=== PATIENT | female | born 1990 | race African-American/Black ===

== ENCOUNTER 2016-07-21 17:57 | Emergency (ER) | payer MEDICAID, OTHER ==
[~2016-07-21] VITALS: Ht 165.1 cm; Wt 114.0 kg
[~2016-07-21 17:57] MED LIST: MOME17SP; PREN1TAB60 PO
[2016-07-21 18:00] VITALS: BP 116/80
[2016-07-21] MEDS ORDERED: ONDANSETRON ODT 4 MG PO ONE (18:30)
[2016-07-21] MEDS ORDERED: IBUPROFEN 200 MG TABLET PO ONE (18:30)
[2016-07-21] MEDS ORDERED: HYDROcodone/APAP 5/325 TABLET PO ONE (18:30)
[2016-07-21] MEDS ORDERED: HYDROcodone/APAP 5/325 TABLET ONE (18:54)
[2016-07-21] MEDS ORDERED: ONDANSETRON ODT 4 MG ONE (18:55)
[2016-07-21] MEDS ORDERED: IBUPROFEN 200 MG TABLET ONE (18:55)
== END 2016-07-21 19:37 | disposition home or self-care (01) ==
LOC: ED 18:27
DX: S80.01XA Contusion of right knee, initial encounter (principal); Z90.49 Acquired absence of other specified parts of digestive tract; Z88.0 Allergy status to penicillin; W19.XXXA Unspecified fall, initial encounter; Y93.89 Activity, other specified; Y92.89 Other specified places as the place of occurrence of the external cause; Y99.8 Other external cause status
CPT/HCPCS: 29505; 73564; 99284; Q0162

== ENCOUNTER 2016-07-27 12:57 | Emergency (ER) | payer MEDICAID, OTHER ==
[~2016-07-27] VITALS: Ht 165.1 cm; Wt 112.1 kg
[2016-07-27] MEDS ORDERED: ONDANSETRON ODT 4 MG ONE ×2 (13:33→14:12)
[2016-07-27] MEDS ORDERED: ONDANSETRON ODT 4 MG PO ONE ×2 (14:00→14:30)
[2016-07-27] MEDS ORDERED: LORazepam 1MG TABLET ONE (14:20)
[2016-07-27] MEDS ORDERED: LORazepam 1MG TABLET PO ONE (14:30)
[2016-07-27 15:39] VITALS: BP 125/85
== END 2016-07-27 15:41 ==
LOC: ED 15:35
DX: T78.40XA Allergy, unspecified, initial encounter (principal); Z90.49 Acquired absence of other specified parts of digestive tract
CPT/HCPCS: 99284; Q0162

== ENCOUNTER 2018-03-01 17:39 | Emergency (ER) | payer MEDICAID ==
[~2018-03-01] VITALS: Ht 162.6 cm; Wt 115.0 kg
[2018-03-01] MEDS ORDERED: DIPHENHYDRAMINE 25 MG CAPSULE ONE (17:52)
[2018-03-01] MEDS ORDERED: EPINEPHRINE 1 MG/ML, 1ML ONE (17:52)
[2018-03-01] MEDS ORDERED: FAMOTIDINE 20 MG TABLET ONE (17:52)
[2018-03-01] MEDS ORDERED: EPINEPHRINE 1 MG/ML, 1ML SQ ONE (18:00)
[2018-03-01] MEDS ORDERED: DIPHENHYDRAMINE 25 MG CAPSULE PO ONE (18:00)
[2018-03-01] MEDS ORDERED: FAMOTIDINE 20 MG TABLET PO ONE (18:00)
[2018-03-01] MEDS ORDERED: DIPHENHYDRAMINE 50 MG/ML, 1ML ONE (18:08)
[2018-03-01] MEDS ORDERED: FAMOTIDINE 20 MG/2 ML ONE (18:08)
[2018-03-01] MEDS ORDERED: methylPREDNISolone SOD SUCC 125 MG/2 ML ONE (18:08)
[2018-03-01] MEDS ORDERED: methylPREDNISolone SOD SUCC 125 MG/2 ML IVPush ONE (18:30)
[2018-03-01] MEDS ORDERED: DIPHENHYDRAMINE 50 MG/ML, 1ML IVPush ONE (18:30)
[2018-03-01] MEDS ORDERED: FAMOTIDINE 20 MG/2 ML IVPush ONE (18:30)
[2018-03-01] MEDS ORDERED: SODIUM CHLORIDE FLUSH 10ML SYR IVF ONE (18:30)
[2018-03-01 20:00] VITALS: BP 141/84
[2018-03-01] MEDS ORDERED: ACETAMINOPHEN 500 MG TABLET ONE (20:54)
[2018-03-01] MEDS ORDERED: ACETAMINOPHEN 500 MG TABLET PO ONE (21:00)
== END 2018-03-01 21:23 | disposition home or self-care (01) ==
LOC: ED 18:54
DX: T78.3XXA Angioneurotic edema, initial encounter (principal)
CPT/HCPCS: 96372; 96374; 96375; 99284; J0171; J1200; J2930; S0028

== ENCOUNTER 2019-07-17 00:43 | Emergency (ER) | payer MEDICAID, OTHER, SELFPAY ==
[~2019-07-17] VITALS: Ht 167.6 cm; Wt 112.7 kg
[2019-07-17 00:46] VITALS: BP 123/78
[2019-07-17 02:02] LABS: RAPID INFLUENZA A Negative (Negative); RAPID INFLUENZA B Negative (Negative)
== END 2019-07-17 03:12 | disposition home or self-care (01) ==
LOC: ED 03:00
DX: B34.9 Viral infection, unspecified (principal); Z20.828 Contact with and (suspected) exposure to other viral communicable diseases; Z90.49 Acquired absence of other specified parts of digestive tract
CPT/HCPCS: 71045; 87081; 87400; 87486; 87581; 87633; 87798; 87880; 99284

== ENCOUNTER 2019-09-08 23:15 | Emergency (ER) | payer MEDICAID ==
[~2019-09-08] VITALS: Ht 172.7 cm; Wt 115.5 kg
[2019-09-08 23:18] VITALS: BP 119/86
== END 2019-09-09 00:06 | disposition home or self-care (01) ==
LOC: ED 23:26
DX: H10.33 Unspecified acute conjunctivitis, bilateral (principal); H69.82 Other specified disorders of Eustachian tube, left ear; J30.2 Other seasonal allergic rhinitis; Z90.49 Acquired absence of other specified parts of digestive tract
CPT/HCPCS: 99283

== ENCOUNTER 2019-12-08 03:39 | Emergency (ER) | payer MEDICAID ==
[~2019-12-08] VITALS: Ht 170.2 cm; Wt 114.6 kg
[2019-12-08 03:42] VITALS: BP 145/86
--- NOTE | 2019-12-08 04:05 | NUR ---
PT TO ED WITH RUE PAIN, EXTENDING FROM HAND TO SHOULDER. STARTED X4 DAYS AGO, WORSENING TONIGHT. PT REPORTS PAIN WITH MOVEMENT, NEURO INTACT, DENIES PAIN ALONG SPINE. PT CONNECTED TO MONITORING, CALL LIGHT WITHIN REACH, ALL SAFETY MEASURES IN PLACE.
--- NOTE | 2019-12-08 04:50 | NUR ---
SPLINT APPLIED, EDUCATION PERFORMED, PT VERBALIZED UNDERSTANDING OF ORTHOPEDIC SPLINT USE.
== END 2019-12-08 05:03 | disposition home or self-care (01) ==
LOC: ED 04:12
DX: G56.01 Carpal tunnel syndrome, right upper limb (principal); E66.9 Obesity, unspecified; Z90.49 Acquired absence of other specified parts of digestive tract; Z88.0 Allergy status to penicillin
CPT/HCPCS: 29125; 99283

== ENCOUNTER 2021-01-01 13:09 | Emergency (ER) | payer MEDICAID ==
[~2021-01-01] VITALS: Ht 172.7 cm; Wt 70.0 kg
[2021-01-01 14:05] LABS: BASOPHILS % (AUTO) 1 % (0-1); EOSINOPHILS % (AUTO) 2 % (1-7); LYMPHOCYTES % (AUTO) 22 % (22-44); MEAN CORPUSCULAR HEMOGLOBIN 25.2 pg (27.0-34.8); MEAN CORPUSCULAR HGB CONC 32.7 g/dL (32.4-35.8); MEAN PLATELET VOLUME 8.1 fL (7.4-10.4); MONOCYTES % (AUTO) 9 % (2-9); NEUTROPHILS % (AUTO) 66 % (42-75); PLATELET COUNT 306 x10^3/uL (130-400); RED BLOOD COUNT 4.33 x10^6/uL (3.82-5.3); RED CELL DISTRIBUTION WIDTH 16.9 % (9.6-15.2)
[2021-01-01 14:08] LABS: ALANINE AMINOTRANSFERASE 26 U/L (12-78); ALBUMIN 2.5 g/dL (3.4-5.0); ANION GAP 8 mmol/L (5-15); CALCIUM 8.9 mg/dL (8.5-10.1); CHLORIDE 106 mmol/L (98-107); CREATININE 0.67 mg/dL (0.55-1.02)
[2021-01-01 14:10] LABS: ALKALINE PHOSPHATASE 141 U/L (45-117); BILIRUBIN,TOTAL 0.3 mg/dL (0.2-1.0); TOTAL PROTEIN 7.7 g/dL (6.4-8.2)
--- NOTE | 2021-01-01 17:40 | NUR ---
PT WALKED BACK FROM TRIAGE
[2021-01-01] MEDS ORDERED: ONDANSETRON ODT 4 MG PO ONE (18:00)
[2021-01-01] MEDS ORDERED: ACETAMINOPHEN 500 MG TABLET PO ONE (18:00)
--- NOTE | 2021-01-01 18:04 | NUR ---
PT BIB POV. PER PT SHE HAS HAD DIFFUSE ABD PAIN X 6 DAYS. PT STATES SHE WAS SEEN PRIOR AND DX WITH BACTERIAL VAGINOSIS, BUT HAS BEEN UNABLE TO HOLD DOWN MEDICATION METRONIDAZOLE D/T VOMITTING. PT ALSO REPORTS SHE IS 18 WEEKS BUT DENIES ANY VAGINAL BLEEDING OR CRAMPING. EDMD AT BEDSIDE FOR EVAL. PT RESTING IN [facility], MONITORING IN PLACE, NADN AT THIS TIME, [facility].
[2021-01-01] MEDS ORDERED: ACETAMINOPHEN 500 MG TABLET ONE (18:09)
[2021-01-01] MEDS ORDERED: ONDANSETRON ODT 4 MG ONE (18:10)
[2021-01-01 18:25] LABS: MICROSCOPIC INDICATED
--- NOTE | 2021-01-01 19:00 | NUR ---
REPORT FROM JUS SANCHEZ WITH ASSESSMENT NO PAIN/NAUSEA UPDATED ON ESTIMATED POC (WAITING ON WET PREP RESULTS)
--- NOTE | 2021-01-01 19:15 | NUR ---
REPORT TO LAURA BALL.
[2021-01-01 19:51] LABS: CLUE CELLS NONE SEEN (NONE SEEN); WET PREP WBCS FEW (FEW)
[2021-01-01 20:22] VITALS: BP 127/80
== END 2021-01-01 20:24 | disposition home or self-care (01) ==
LOC: ED 18:42
DX: O23.592 Infection of other part of genital tract in pregnancy, second trimester (principal); R11.2 Nausea with vomiting, unspecified; Z90.49 Acquired absence of other specified parts of digestive tract; Z87.891 Personal history of nicotine dependence; Z3A.16 16 weeks gestation of pregnancy
CPT/HCPCS: 36415; 76815; 80053; 81001; 85025; 87086; 87210; 87491; 87591; 87808; 99284; Q0162